=== PATIENT | female | born 1950 | race Caucasian/White ===

== ENCOUNTER 2017-10-12 20:10 | Emergency (ER) | payer OTHER, MEDICARE ==
[~2017-10-12] VITALS: Ht 160 cm; Wt 75.0 kg
[2017-10-12 20:14] VITALS: BP 151/76; PULSE 64; RESP 16; TEMP 98.6; O2SAT 98
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
[2017-10-12 22:55] LABS: AUTOMATED NEUTROPHIL # 8.5 TH/MM3 (1.8-7.7); BASOPHIL # 0.1 TH/MM3 (0-0.2); BASOPHIL % 1.1 % (0.0-2.0); EOSINOPHIL # 0.1 TH/MM3 (0-0.4); HEMATOCRIT 38.4 % (35.0-46.0); HEMO FLAGS DIFF FINAL; LYMPH % 13.8 % (9.0-44.0); LYMPHOCYTE # 1.6 TH/MM3 (1.0-4.8); MEAN CELL VOLUME 96.2 FL (80.0-100.0); MEAN CORPUSCULAR HEMOGLOBIN 32.6 PG (27.0-34.0); MEAN CORPUSCULAR HGB CONC 33.9 % (32.0-36.0); NEUT % 75.1 % (16.0-70.0); PLATELET COUNT 245 TH/MM3 (150-450); RED CELL DISTRIBUTION WIDTH 13.2 % (11.6-17.2); WHITE BLOOD COUNT 11.3 TH/MM3 (4.0-11.0)
[2017-10-12 23:07] LABS: APTT (PATIENT) 25.7 SEC (24.3-30.1); INTERNATIONAL NORMALIZED RATIO 1.1 RATIO; PROTHROMBIN TIME - PATIENT 11.3 SEC (9.8-11.6)
[2017-10-12 23:10] LABS: BICARBONATE 29.5 MEQ/L (21.0-32.0)
[2017-10-13] MEDS ORDERED: ACETAMINOPHEN/HYDROcodone 325 MG/5 MG TAB PO ONE
[2017-10-13] MEDS ORDERED: POTASSIUM CHLORIDE 25 MEQ EFFERVESCENT TAB PO ONE
[2017-10-13] MEDS ORDERED: IOHEXOL 350 MG/ML 10 ML VIAL (for RAD DIAG) IVCONTRAST ONE (00:09)
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
== END 2017-10-13 03:12 | disposition home or self-care (01) ==
LOC: NEPE 20:10
DX: M54.2 Cervicalgia (principal); R42 Dizziness and giddiness; M06.9 Rheumatoid arthritis, unspecified; I10 Essential (primary) hypertension; E03.9 Hypothyroidism, unspecified; E11.9 Type 2 diabetes mellitus without complications
CPT/HCPCS: 70450; 70498; 72125; 80048; 85025; 85610; 85730; 99284; Q9967

== ENCOUNTER 2017-11-02 16:23 | Emergency (ER) | payer MEDICARE ==
[~2017-11-02] VITALS: Ht 160 cm; Wt 72.0 kg
[2017-11-02 16:27] VITALS: BP 172/82; PULSE 82; RESP 16; TEMP 98.2; O2SAT 97
--- NOTE | 2017-11-02 17:00 | PD ---
HPI . Ankle injury Chief Complaint: Injury Time Seen by Provider: 16:43 Travel History International Travel<30 days: No Contact w/Intl Traveler<30days: No Traveled to known affect area: No History of Present Illness HPI Patient presents with the chief complaint of right ankle injury. Onset was about 2 in the morning. She states that she tripped and fell getting up to go to the bathroom. She comes in complaining with lateral ankle pain. Pain is exacerbated by trying to walk on it. Pain is rated 7/10. She states that she has taken one hydrocodone prior to arrival and she states that she has a prescription for this because of rheumatoid arthritis. She states that she does not like to take it unless she absolutely has to. She reports no relief of her pain with a hydrocodone. The patient also reports that she has treated the ankle with ice and elevation. She has been using a walker for ambulation. [facility] Past Medical History Arthritis: Yes (OSTEOARTHRITIS AND RA) Diabetes: Yes Patient Takes Glucophage: No Hypertension: Yes Thyroid Disease: Yes (HYPO) Past Surgical History Hysterectomy: Yes Social History Alcohol Use: No (occ) Tobacco Use: No (1/4 pack a day ) Substance Use: No Allergies-Medications (Allergen,Severity, Reaction): Coded Allergies: No Known Allergies (Unverified , 11/02/17) Review of Systems Except as stated in HPI: all other systems reviewed are Neg Musculoskeletal: Positive: Arthralgias, Limited ROM Physical Exam Narrative GENERAL: Awake and alert and in no acute distress. SKIN: Warm and dry. HEAD: Normocephalic/atraumatic. EYES: Pupils are equal. Extraocular movements are intact. NECK: Normal range of motion. CARDIOVASCULAR: Regular rate and rhythm. RESPIRATORY: Nonlabored respirations. MUSCULOSKELETAL: Bruising and swelling to the lateral right ankle. Tender over the anterior talofibular ligament. Ankle is stable. Distally neurovascularly intact. NEUROLOGICAL: Nonfocal. PSYCHIATRIC: Appropriate mood and affect. Data Data Last Documented VS Vital Signs Date Time Temp Pulse Resp B/P (MAP) Pulse Ox O2 Delivery O2 Flow Rate FiO2 11/02/17 16:27 98.2 82 16 172/82 (112) 97 Orders Orders Ankle, Complete ([id number]) (11/02/17 16:43) Emmanuel Bandage (11/02/17 17:16) Crutches (11/02/17 17:16) [facility] Medical Decision Making Medical Screen Exam Complete: Yes Emergency Medical Condition: Yes Differential Diagnosis Differential diagnosis of extremity trauma includes but is not limited to fracture, sprain or strain, dislocation, contusion Narrative Course This patient presents with a right ankle injury. X-ray is pending. X-ray>>: No evidence of fracture. The patient will be discharged with instructions in [facility] therapy. Diagnosis Primary Impression: Ankle sprain Qualified Codes: S93.491A - Sprain of other ligament of right ankle, initial encounter Patient Instructions: Ankle Sprain (DC), General Instructions, [facility] Therapy (ED ) Disposition: 01 DISCHARGE HOME Condition: Stable Rosita Tobar MD Nov 02, 2017 17:00
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
== END 2017-11-02 18:31 | disposition home or self-care (01) ==
LOC: NEPD 16:23
DX: S93.491A Sprain of other ligament of right ankle, initial encounter (principal); W01.0XXA Fall on same level from slipping, tripping and stumbling without subsequent striking against object, initial encounter
CPT/HCPCS: 73610; 99283; E0113